=== PATIENT | female | born 1965 | race Caucasian/White ===

== ENCOUNTER 2017-07-25 23:42 | Emergency (ER) | payer OTHER ==
[~2017-07-25] VITALS: Ht 165.1 cm; Wt 81.7 kg
[~2017-07-25 23:42] MED LIST: (None)20 M1 PO; ALBIPROI INH; AMOCLA500 PO; AMOCLA875 PO; AMOX500 PO; ASPI81CH PO; ATOM60 PO; Antivert25 MG PO; BUDE32NIS; BUPR150ER; CODACE30 PO; CODGUAEL PO; DOXY100 PO; ESCI10 PO; ESCI20; ESCI20 PO; HYDACE5 PO; HYDACE5325 PO; HYDPAM25 PO; IBUP600 PO; IBUP800 PO; LEVFLO500 PO; LISHYD1012 PO; LISI20 PO; MECL25 PO; METO25ER; METO50ER PO; MIGRAINE MED; MUPI2TC TOP; Mucinex600 MG PO; NITR.4SL SL; ONDA4 PO; OTC SINUS MED; OXYACE5T PO; PENVK500 PO; PRED20 PO; PSEU120ER PO; RANI150; RXHYD5325 PO; RXOXYACE PO; SULTRIDS PO; Ventolin Soln3 ML INH
[2017-07-25] MEDS ORDERED: ATOR20 PO (23:56)
[2017-07-26 00:51] LABS: BASOPHILS ABSOLUTE AUTO 0.08 K/mm3 (0.00-0.23); BASOPHILS PERCENT AUTO 1 % (0-2); EOSINOPHILS ABSOLUTE AUTO 0.19 K/mm3 (0.00-0.68); EOSINOPHILS PERCENT AUTO 3 % (0-6); Hematocrit 47.4 % (33.0-51.0); Hemoglobin 15.1 g/dL (11.5-16.0); IMMATURE GRAN ABSOLUTE AUTO 0.01 K/mm3 (0.00-0.10); IMMATURE GRAN PERCENT AUTO 0 % (0-1); LYMPHOCYTES ABSOLUTE AUTO 3.21 K/mm3 (0.84-5.20); LYMPHOCYTES PERCENT AUTO 43 % (21-46); MONOCYTES ABSOLUTE AUTO 0.51 K/mm3 (0.16-1.47); MONOCYTES PERCENT AUTO 7 % (4-13); Mean Corpuscular HGB 27.6 pg (26.0-34.0); Mean Corpuscular HGB Conc 31.9 g/dL (31.5-36.5); Mean Corpuscular Volume 87 fL (80-100); Mean Platelet Volume 10.5 fL (9.1-12.4); NEUTROPHILS ABSOLUTE AUTO 3.41 K/mm3 (1.96-9.15); NEUTROPHILS PERCENT AUTO 46 % (41-73); Platelet Count 239 K/mm3 (150-400); RDW Coefficient Variation 11.9 % (11.7-14.2); RDW Standard Deviation 38.1 fL (35.1-46.3); Red Blood Cell Count 5.48 M/mm3 (3.80-5.20); White Blood Cell Count 7.41 K/mm3 (4.00-11.30)
[2017-07-26 00:59] LABS: Anion Gap 6 mmol/L (6-16); CO2, Blood 28 mmol/L (21-32); Chloride, Blood 105 mmol/L (98-108); Glucose, Blood 95 mg/dL (70-99); Potassium, Blood 4.1 mmol/L (3.5-5.5); Sodium, Blood 139 mmol/L (136-145)
[2017-07-26 01:00] LABS: Alanine Aminotransfer (ALT/SGP 24 U/L (12-78); Albumin, Blood 3.7 g/dL (3.4-5.0); Albumin/Globulin Ratio 0.9 (0.8-1.8); Alk Phos 99 U/L (50-136); Aspartate Aminotrans (AST/SGOT 15 U/L (12-37); Bilirubin, Total 0.2 mg/dL (0.1-1.0); Blood Urea Nitrogen 18 mg/dL (8-24); Bun/Creatinine Ratio 21.2 (12.0-20.0); Calcium, Blood 8.6 mg/dL (8.5-10.1); Creatinine, Blood 0.85 mg/dL (0.40-1.00); Globulin, Blood 4.1 g/dL (2.2-4.0); Glomerular Filtration Rate >60 (60-); Total Protein, Blood 7.8 g/dL (6.4-8.2); Troponin I <0.015 ng/mL (0.000-0.040)
== END 2017-07-26 02:17 | disposition home or self-care (01) ==
LOC: ER 23:42
PROVIDERS: Emergency Medicine
DX: R07.9 Chest pain, unspecified (principal); F41.9 Anxiety disorder, unspecified; I10 Essential (primary) hypertension; F31.9 Bipolar disorder, unspecified; J45.909 Unspecified asthma, uncomplicated; F17.200 Nicotine dependence, unspecified, uncomplicated; Z90.712 Acquired absence of cervix with remaining uterus; Z88.8 Allergy status to other drugs, medicaments and biological substances; Z88.5 Allergy status to narcotic agent; Z88.1 Allergy status to other antibiotic agents; Z79.899 Other long term (current) drug therapy; Z79.82 Long term (current) use of aspirin
CPT/HCPCS: 36415; 71046; 80053; 83880; 84484; 85025; 93005; 93010; 99284

== ENCOUNTER → 2019-01-30 | Outpatient (CLI) | payer OTHER ==
[~2019-01-30] MED LIST changes: +ATOR20 PO; +Augmentin 875-1 EACH PO
[2019-01-30 14:12] LABS: BASOPHILS ABSOLUTE AUTO 0.06 K/mm3 (0.00-0.23); BASOPHILS PERCENT AUTO 1 % (0-2); EOSINOPHILS ABSOLUTE AUTO 0.19 K/mm3 (0.00-0.68); EOSINOPHILS PERCENT AUTO 2 % (0-6); Hematocrit 53.7 % (33.0-51.0); Hemoglobin 16.7 g/dL (11.5-16.0); IMMATURE GRAN ABSOLUTE AUTO 0.01 K/mm3 (0.00-0.10); IMMATURE GRAN PERCENT AUTO 0 % (0-1); LYMPHOCYTES PERCENT AUTO 26 % (21-46); MONOCYTES ABSOLUTE AUTO 0.44 K/mm3 (0.16-1.47); MONOCYTES PERCENT AUTO 5 % (4-13); Mean Corpuscular HGB 27.9 pg (26.0-34.0); Mean Corpuscular HGB Conc 31.1 g/dL (31.5-36.5); Mean Corpuscular Volume 90 fL (80-100); Mean Platelet Volume 10.8 fL (9.1-12.4); NEUTROPHILS ABSOLUTE AUTO 5.88 K/mm3 (1.96-9.15); NEUTROPHILS PERCENT AUTO 66 % (41-73); Platelet Count 317 K/mm3 (150-400); RDW Coefficient Variation 13.5 % (11.7-14.2); RDW Standard Deviation 44.9 fL (35.1-46.3); Red Blood Cell Count 5.99 M/mm3 (3.80-5.20); White Blood Cell Count 8.88 K/mm3 (4.00-11.30)
[2019-01-30 14:35] LABS: Alanine Aminotransfer (ALT/SGP 39 U/L (12-78); Albumin, Blood 3.8 g/dL (3.4-5.0); Alk Phos 104 U/L (50-136); Anion Gap 2 mmol/L (6-16); Aspartate Aminotrans (AST/SGOT 24 U/L (12-37); Bilirubin, Total 0.2 mg/dL (0.1-1.0); Blood Urea Nitrogen 19 mg/dL (8-24); Bun/Creatinine Ratio 23.6 (12.0-20.0); CO2, Blood 34 mmol/L (21-32); Calcium, Blood 8.9 mg/dL (8.5-10.1); Chloride, Blood 104 mmol/L (98-108); Creatinine, Blood 0.81 mg/dL (0.40-1.00); Globulin, Blood 3.7 g/dL (2.2-4.0); Glomerular Filtration Rate >60 (60-); Glucose, Blood 132 mg/dL (70-99); Potassium, Blood 4.6 mmol/L (3.5-5.5); Sodium, Blood 140 mmol/L (136-145); Total Protein, Blood 7.5 g/dL (6.4-8.2); Troponin I <0.015 ng/mL (0.000-0.040)
== END | disposition home or self-care (01) ==
LOC: LAB SHORT 13:20 → LAB 13:20
PROVIDERS: Family Medicine
DX: R06.00 Dyspnea, unspecified (principal); R53.83 Other fatigue
CPT/HCPCS: 80053; 84443; 84484; 85025

== ENCOUNTER 2019-03-26 19:17 | Emergency (ER) | payer OTHER ==
[~2019-03-26] VITALS: Ht 165.1 cm; Wt 92.1 kg
[~2019-03-26 19:17] MED LIST changes: -Augmentin 875-1 EACH PO
[2019-03-26 20:22] LABS: BASOPHILS ABSOLUTE AUTO 0.02 K/mm3 (0.00-0.23); BASOPHILS PERCENT AUTO 0 % (0-2); EOSINOPHILS ABSOLUTE AUTO 0.01 K/mm3 (0.00-0.68); EOSINOPHILS PERCENT AUTO 0 % (0-6); Hemoglobin 14.3 g/dL (11.5-16.0); IMMATURE GRAN ABSOLUTE AUTO 0.04 K/mm3 (0.00-0.10); IMMATURE GRAN PERCENT AUTO 1 % (0-1); LYMPHOCYTES ABSOLUTE AUTO 0.98 K/mm3 (0.84-5.20); LYMPHOCYTES PERCENT AUTO 18 % (21-46); MONOCYTES ABSOLUTE AUTO 0.17 K/mm3 (0.16-1.47); MONOCYTES PERCENT AUTO 3 % (4-13); Mean Corpuscular HGB 27.7 pg (26.0-34.0); Mean Corpuscular HGB Conc 31.8 g/dL (31.5-36.5); Mean Corpuscular Volume 87 fL (80-100); Mean Platelet Volume 10.5 fL (9.1-12.4); NEUTROPHILS ABSOLUTE AUTO 4.35 K/mm3 (1.96-9.15); NEUTROPHILS PERCENT AUTO 78 % (41-73); Platelet Count 275 K/mm3 (150-400); RDW Coefficient Variation 13.6 % (11.7-14.2); RDW Standard Deviation 43.3 fL (35.1-46.3); Red Blood Cell Count 5.17 M/mm3 (3.80-5.20); White Blood Cell Count 5.57 K/mm3 (4.00-11.30)
[2019-03-26 20:41] LABS: Alanine Aminotransfer (ALT/SGP 46 U/L (12-78); Albumin/Globulin Ratio 1.2 (0.8-1.8); Alk Phos 111 U/L (50-136); Anion Gap 2 mmol/L (6-16); Aspartate Aminotrans (AST/SGOT 31 U/L (12-37); Bilirubin, Total 0.3 mg/dL (0.1-1.0); Blood Urea Nitrogen 14 mg/dL (8-24); Bun/Creatinine Ratio 21.7 (12.0-20.0); CO2, Blood 30 mmol/L (21-32); Calcium, Blood 9.1 mg/dL (8.5-10.1); Chloride, Blood 104 mmol/L (98-108); Creatinine, Blood 0.65 mg/dL (0.40-1.00); Globulin, Blood 3.4 g/dL (2.2-4.0); Glomerular Filtration Rate >60 (60-); Glucose, Blood 131 mg/dL (70-99); Potassium, Blood 4.3 mmol/L (3.5-5.5); Sodium, Blood 136 mmol/L (136-145); Total Protein, Blood 7.4 g/dL (6.4-8.2)
[2019-04-30] MEDS ORDERED: Augmentin 875-1 EACH PO (18:36)
== END 2019-03-26 22:05 | disposition home or self-care (01) ==
LOC: ER 19:17
PROVIDERS: Physician Assistant
DX: J44.1 Chronic obstructive pulmonary disease with (acute) exacerbation (principal); I27.21 Secondary pulmonary arterial hypertension; F17.210 Nicotine dependence, cigarettes, uncomplicated; Z88.8 Allergy status to other drugs, medicaments and biological substances; Z88.1 Allergy status to other antibiotic agents; Z88.5 Allergy status to narcotic agent; Z79.899 Other long term (current) drug therapy; Z79.82 Long term (current) use of aspirin
CPT/HCPCS: 36415; 71046; 80053; 83880; 84484; 85025; 85379; 93005; 93010; 96374; 99285-25; J1940

== ENCOUNTER 2019-05-03 06:56 | Day surgery (SDC) | payer OTHER ==
[~2019-05-03] VITALS: Ht 165.1 cm; Wt 92.0 kg
[~2019-05-03 06:56] MED LIST changes: +Augmentin 875-1 EACH PO
[2019-05-03] MEDS ORDERED: OMEPRAZOLE20 MG PO (07:22)
[2019-05-03] MEDS ORDERED: NAPR500 PO (07:23)
[2019-05-03] MEDS ORDERED: FURO40 PO (07:24)
[2019-05-03] MEDS ORDERED: LOSA25 PO (07:25)
[2019-05-03] MEDS ORDERED: BUDE6HFA INH (07:25)
[2019-05-03] MEDS ORDERED: ALBU90OI INH (07:26)
--- NOTE | 2019-05-03 12:40 | NUR ---
PT VERBALIZED UNDERSTANDING OF WRITTEN AND VERBAL D/C INST. IV REMOVED. -BLEEDING OR SWELLING R GROIN.
== END 2019-05-03 13:00 | disposition home or self-care (01) ==
LOC: MHTC 06:56
DX: I27.20 Pulmonary hypertension, unspecified (principal); F15.10 Other stimulant abuse, uncomplicated; I10 Essential (primary) hypertension; E78.5 Hyperlipidemia, unspecified; J44.9 Chronic obstructive pulmonary disease, unspecified; K21.9 Gastro-esophageal reflux disease without esophagitis; F41.9 Anxiety disorder, unspecified; F17.210 Nicotine dependence, cigarettes, uncomplicated; Z79.899 Other long term (current) drug therapy; Z79.51 Long term (current) use of inhaled steroids; Z88.8 Allergy status to other drugs, medicaments and biological substances; Z88.1 Allergy status to other antibiotic agents
CPT/HCPCS: 93451; 99152; 99153; C1769; J0690; J1644; J2250; J3010; J7030

== ENCOUNTER 2019-06-27 01:58 | Emergency (ER) | payer OTHER ==
[~2019-06-27] VITALS: Ht 167.6 cm; Wt 93.0 kg
[~2019-06-27 01:58] MED LIST changes: +ALBU90OI INH; +BUDE6HFA INH; +FURO40 PO; +LOSA25 PO; +NAPR500 PO; +OMEPRAZOLE20 MG PO
[2019-06-27 02:54] LABS: BASOPHILS ABSOLUTE AUTO 0.07 K/mm3 (0.00-0.23); BASOPHILS PERCENT AUTO 1 % (0-2); EOSINOPHILS ABSOLUTE AUTO 0.14 K/mm3 (0.00-0.68); EOSINOPHILS PERCENT AUTO 2 % (0-6); Hematocrit 50.7 % (33.0-51.0); Hemoglobin 15.8 g/dL (11.5-16.0); IMMATURE GRAN ABSOLUTE AUTO 0.02 K/mm3 (0.00-0.10); IMMATURE GRAN PERCENT AUTO 0 % (0-1); LYMPHOCYTES ABSOLUTE AUTO 2.63 K/mm3 (0.84-5.20); LYMPHOCYTES PERCENT AUTO 30 % (21-46); MONOCYTES ABSOLUTE AUTO 0.58 K/mm3 (0.16-1.47); MONOCYTES PERCENT AUTO 7 % (4-13); Mean Corpuscular HGB 27.8 pg (26.0-34.0); Mean Corpuscular HGB Conc 31.2 g/dL (31.5-36.5); Mean Corpuscular Volume 89 fL (80-100); Mean Platelet Volume 11.2 fL (9.1-12.4); NEUTROPHILS ABSOLUTE AUTO 5.23 K/mm3 (1.96-9.15); NEUTROPHILS PERCENT AUTO 60 % (41-73); Platelet Count 279 K/mm3 (150-400); RDW Coefficient Variation 13.2 % (11.7-14.2); RDW Standard Deviation 43.6 fL (35.1-46.3); Red Blood Cell Count 5.68 M/mm3 (3.80-5.20); White Blood Cell Count 8.67 K/mm3 (4.00-11.30)
[2019-06-27 03:09] LABS: Alanine Aminotransfer (ALT/SGP 33 U/L (12-78); Albumin, Blood 3.7 g/dL (3.4-5.0); Albumin/Globulin Ratio 1.1 (0.8-1.8); Alk Phos 99 U/L (50-136); Anion Gap 5 mmol/L (6-16); Aspartate Aminotrans (AST/SGOT 19 U/L (12-37); Bilirubin, Total 0.2 mg/dL (0.1-1.0); Blood Urea Nitrogen 19 mg/dL (8-24); Bun/Creatinine Ratio 23.6 (12.0-20.0); CO2, Blood 29 mmol/L (21-32); Chloride, Blood 110 mmol/L (98-108); Creatinine, Blood 0.81 mg/dL (0.40-1.00); Globulin, Blood 3.3 g/dL (2.2-4.0); Glomerular Filtration Rate >60 (60-); Glucose, Blood 120 mg/dL (70-99); Potassium, Blood 4.1 mmol/L (3.5-5.5); Sodium, Blood 144 mmol/L (136-145); Troponin I <0.015 ng/mL (0.000-0.040)
[2019-06-27] MEDS ORDERED: Prednisone20 MG PO (05:08)
== END 2019-06-27 05:34 | disposition home or self-care (01) ==
LOC: ER 01:58
PROVIDERS: Emergency Medicine
DX: J44.1 Chronic obstructive pulmonary disease with (acute) exacerbation (principal); I10 Essential (primary) hypertension; I27.20 Pulmonary hypertension, unspecified; F41.9 Anxiety disorder, unspecified; F31.9 Bipolar disorder, unspecified; F17.210 Nicotine dependence, cigarettes, uncomplicated; Z99.81 Dependence on supplemental oxygen; Z79.899 Other long term (current) drug therapy
CPT/HCPCS: 71046; 80053; 83880; 84484; 85025; 93005; 93010; 94640; 99284-25; J7512

== ENCOUNTER 2019-08-11 18:25 | Inpatient (IN) | payer OTHER ==
[~2019-08-11] VITALS: Ht 165.1 cm; Wt 90.8 kg
[~2019-08-11 18:25] MED LIST changes: -ALBU90OI INH; -BUDE6HFA INH; -FURO40 PO; -NAPR500 PO; -NITR.4SL SL; -OMEPRAZOLE20 MG PO; +Prednisone20 MG PO
[2019-08-11 19:07] LABS: BASOPHILS ABSOLUTE AUTO 0.07 K/mm3 (0.00-0.23); BASOPHILS PERCENT AUTO 1 % (0-2); EOSINOPHILS PERCENT AUTO 1 % (0-6); Hematocrit 48.1 % (33.0-51.0); Hemoglobin 15.4 g/dL (11.5-16.0); IMMATURE GRAN ABSOLUTE AUTO 0.02 K/mm3 (0.00-0.10); IMMATURE GRAN PERCENT AUTO 0 % (0-1); LYMPHOCYTES ABSOLUTE AUTO 1.99 K/mm3 (0.84-5.20); LYMPHOCYTES PERCENT AUTO 27 % (21-46); MONOCYTES ABSOLUTE AUTO 0.57 K/mm3 (0.16-1.47); MONOCYTES PERCENT AUTO 8 % (4-13); Mean Corpuscular HGB 28.4 pg (26.0-34.0); Mean Corpuscular Volume 89 fL (80-100); NEUTROPHILS PERCENT AUTO 62 % (41-73); Platelet Count 216 K/mm3 (150-400); RDW Coefficient Variation 13.2 % (11.7-14.2); RDW Standard Deviation 42.3 fL (35.1-46.3); Red Blood Cell Count 5.43 M/mm3 (3.80-5.20); White Blood Cell Count 7.25 K/mm3 (4.00-11.30)
[2019-08-11 19:26] LABS: Alanine Aminotransfer (ALT/SGP 20 U/L (12-78); Albumin, Blood 3.6 g/dL (3.4-5.0); Alk Phos 89 U/L (50-136); Anion Gap 2 mmol/L (6-16); Aspartate Aminotrans (AST/SGOT 13 U/L (12-37); Bilirubin, Total 0.3 mg/dL (0.1-1.0); Blood Urea Nitrogen 16 mg/dL (8-24); Bun/Creatinine Ratio 25.3 (12.0-20.0); CO2, Blood 33 mmol/L (21-32); Calcium, Blood 9.2 mg/dL (8.5-10.1); Chloride, Blood 104 mmol/L (98-108); Creatinine, Blood 0.63 mg/dL (0.40-1.00); Globulin, Blood 3.5 g/dL (2.2-4.0); Glomerular Filtration Rate >60 (60-); Glucose, Blood 92 mg/dL (70-99); Sodium, Blood 139 mmol/L (136-145); Total Protein, Blood 7.1 g/dL (6.4-8.2); Troponin I <0.015 ng/mL (0.000-0.040)
[2019-08-11 20:23] LABS: PCO2 Arterial 54.5 mmHg (35-45); PO2 Arterial 79.2 mmHg (80-100)
[2019-08-11] MEDS ORDERED: NITR.4SL SL (20:29)
[2019-08-11] MEDS ORDERED: OMEPRAZOLE20 MG PO (20:29)
[2019-08-11] MEDS ORDERED: BUDE6HFA INH (20:30)
[2019-08-11] MEDS ORDERED: INCRUSE ELLI62.5 MCG INH (20:30)
[2019-08-11] MEDS ORDERED: Duoneb 2.5-0.5 M3 ML NEB (20:31)
[2019-08-11] MEDS ORDERED: FURO20 PO (20:32)
[2019-08-11] MEDS ORDERED: ALBU90OI INH (20:32)
[2019-08-11] MEDS ORDERED: AMLO5 PO (20:33)
[2019-08-11] MEDS ORDERED: NAPR500 PO (20:33)
[2019-08-11] MEDS ORDERED: ABILIFY MYCITE5 M1 PO (20:34)
[2019-08-11] MEDS ORDERED: HYDHCL25 PO (20:35)
[2019-08-12 05:37] LABS: Hematocrit 48.4 % (33.0-51.0); Hemoglobin 15.7 g/dL (11.5-16.0); Mean Corpuscular HGB 28.1 pg (26.0-34.0); Mean Corpuscular HGB Conc 32.4 g/dL (31.5-36.5); Mean Corpuscular Volume 87 fL (80-100); Mean Platelet Volume 10.8 fL (9.1-12.4); Platelet Count 238 K/mm3 (150-400); RDW Coefficient Variation 12.9 % (11.7-14.2); RDW Standard Deviation 41.3 fL (35.1-46.3); Red Blood Cell Count 5.58 M/mm3 (3.80-5.20); White Blood Cell Count 5.94 K/mm3 (4.00-11.30)
[2019-08-12 06:06] LABS: Alanine Aminotransfer (ALT/SGP 19 U/L (12-78); Albumin, Blood 3.7 g/dL (3.4-5.0); Alk Phos 91 U/L (50-136); Anion Gap 8 mmol/L (6-16); Aspartate Aminotrans (AST/SGOT 15 U/L (12-37); Bilirubin, Total 0.3 mg/dL (0.1-1.0); Blood Urea Nitrogen 16 mg/dL (8-24); Bun/Creatinine Ratio 24.3 (12.0-20.0); CO2, Blood 30 mmol/L (21-32); Calcium, Blood 9.1 mg/dL (8.5-10.1); Chloride, Blood 102 mmol/L (98-108); Creatinine, Blood 0.66 mg/dL (0.40-1.00); Globulin, Blood 3.8 g/dL (2.2-4.0); Glomerular Filtration Rate >60 (60-); Glucose, Blood 139 mg/dL (70-99); Potassium, Blood 4.1 mmol/L (3.5-5.5); Sodium, Blood 140 mmol/L (136-145); Total Protein, Blood 7.5 g/dL (6.4-8.2)
[2019-08-12 07:11] LABS: Adenovirus Not Detected (NOT DETECT); Bordetella pertussis Not Detected (NOT DETECT); Chlamydophila pneumoniae Not Detected (NOT DETECT); Coronavirus 229E Not Detected (NOT DETECT); Coronavirus HKU1 Not Detected (NOT DETECT); Coronavirus NL63 Not Detected (NOT DETECT); Coronavirus OC43 Not Detected (NOT DETECT); Human Metapneumovirus Not Detected (NOT DETECT); Human Rhinovirus/Enterovirus Not Detected (NOT DETECT); Influenza A Not Detected (NOT DETECT); Influenza A/2009-H1 Not Detected (NOT DETECT); Influenza A/H1 Not Detected (NOT DETECT); Influenza A/H3 Not Detected (NOT DETECT); Influenza B Not Detected (NOT DETECT); Mycoplasma pneumoniae Not Detected (NOT DETECT); Parainfluenza Virus 1 Not Detected (NOT DETECT); Parainfluenza Virus 2 Not Detected (NOT DETECT); Parainfluenza Virus 3 Not Detected (NOT DETECT); Parainfluenza Virus 4 Not Detected (NOT DETECT); Respiratory Syncytial Virus Not Detected (NOT DETECT)
--- NOTE | 2019-08-12 19:54 | NUR ---
1914 REPORT RECEIVED FROM VINAY MURPHY; RESTING COMFORTABLY IN BED.
--- NOTE | 2019-08-13 04:00 | NUR ---
SHIFT SUMMARY: 54 Y/O FEMALE RESTED COMFORTABLY ALL SHIFT WHILE WEARING O2 AT 4L/M PER NASAL CANNULA; PT HAD OCCASIONAL BOUTS ANXIETY AT TIMES, HOWEVER; RESOLVED WITH REST AND WATCHING TV OR TALKING WITH FAMILY VISITORS AT BEGINNING OF SHIFT; TELEMETRY REFLECTS NSR PER EARNESTINE TOM--INSURANCE LOSS ASSESSOR; BED LOW POSITION WITH CALL LIGHT AT SIDE.
[2019-08-13 05:25] LABS: BASOPHILS ABSOLUTE AUTO 0.01 K/mm3 (0.00-0.23); BASOPHILS PERCENT AUTO 0 % (0-2); EOSINOPHILS PERCENT AUTO 0 % (0-6); Hematocrit 46.5 % (33.0-51.0); Hemoglobin 15.1 g/dL (11.5-16.0); IMMATURE GRAN ABSOLUTE AUTO 0.03 K/mm3 (0.00-0.10); IMMATURE GRAN PERCENT AUTO 0 % (0-1); LYMPHOCYTES PERCENT AUTO 9 % (21-46); MONOCYTES ABSOLUTE AUTO 0.31 K/mm3 (0.16-1.47); MONOCYTES PERCENT AUTO 3 % (4-13); Mean Corpuscular HGB Conc 32.5 g/dL (31.5-36.5); Mean Corpuscular Volume 86 fL (80-100); Mean Platelet Volume 10.8 fL (9.1-12.4); NEUTROPHILS ABSOLUTE AUTO 8.29 K/mm3 (1.96-9.15); NEUTROPHILS PERCENT AUTO 87 % (41-73); Platelet Count 231 K/mm3 (150-400); RDW Coefficient Variation 13.2 % (11.7-14.2); RDW Standard Deviation 41.3 fL (35.1-46.3); White Blood Cell Count 9.54 K/mm3 (4.00-11.30)
[2019-08-13 05:47] LABS: Anion Gap 6 mmol/L (6-16); Blood Urea Nitrogen 24 mg/dL (8-24); Bun/Creatinine Ratio 36.8 (12.0-20.0); CO2, Blood 29 mmol/L (21-32); Calcium, Blood 8.9 mg/dL (8.5-10.1); Chloride, Blood 102 mmol/L (98-108); Creatinine, Blood 0.65 mg/dL (0.40-1.00); Glomerular Filtration Rate >60 (60-); Glucose, Blood 158 mg/dL (70-99); Magnesium, Blood 2.2 mg/dL (1.6-2.4); Sodium, Blood 137 mmol/L (136-145)
--- NOTE | 2019-08-13 19:33 | NUR ---
REPORT RECEIVED FROM COLTON RN; PT RESTING COMFORTABLY IN BED WHILE TALKING ON PHONE; WEARING O2 AT 2L/M PER NASAL CANNULA.
--- NOTE | 2019-08-14 04:17 | NUR ---
SHIFT SUMMARY: 54 Y/O OBESE FEMALE RESTED COMFORTABLY ALL SHIFT; WEARING O2 AT 2L/M PER NASAL CANNULA WITH O2 SATS 90%; LUNG SOUNDS ARE WHEEZING THROUGHOUT WITH OCCASIONAL PRODUCTIVE COUGH CLEAR PHELGM; HAPPY AND COOPERATIVE; VITAL SIGNS STABLE; UP INDEPENDENTLY IN ROOM WITH GAIT SLOW AND STEADY; EAGER TO RETURN HOME; BED LOW POSITION WITH CALL LIGHT AT SIDE.
[2019-08-14 05:17] LABS: Anion Gap 4 mmol/L (6-16); Blood Urea Nitrogen 33 mg/dL (8-24); Bun/Creatinine Ratio 45.3 (12.0-20.0); CO2, Blood 31 mmol/L (21-32); Calcium, Blood 9.1 mg/dL (8.5-10.1); Chloride, Blood 103 mmol/L (98-108); Creatinine, Blood 0.73 mg/dL (0.40-1.00); Glomerular Filtration Rate >60 (60-); Glucose, Blood 144 mg/dL (70-99); Potassium, Blood 4.3 mmol/L (3.5-5.5); Sodium, Blood 138 mmol/L (136-145)
--- NOTE | 2019-08-14 07:00 | NUR ---
ASSUMED CARE OF PT- PT ALERT AND ORIENTED AND INDEPENDENT IN THE MORAN. PT IS VERY ENERGIZED THIS MORNING AND IS ASKING IF SHE GETS TO GO HOME TODAY. PT IS ON 60 MG IV SOLUMEDROL Q6 AT THIS TIME.
--- NOTE | 2019-08-14 17:44 | NUR ---
SHIFT SUMMARY- PT ALERT AND ORIENTED WAS VERY ENERGIZED THIS MORNING, STEROID DOSE WAS REDUCED TO TWICE A DAY FROM 4 TIMES A DAY. IV LASIX WAS DC'D NEW MEDS ORDERED, SEE EMAR FOR DETAILS. PT HAD A SHOWER TODAY BETWEEN THAT AND THE NEW ORDER FOR FLONASE THE PT STATED HER NASAL CONGESTION TODAY IS IMPROVED. PT WAS DOING "LAPS" IN THE HALLWAY THIS AFTERNOON AND SATS WERE A LITTLE LOWER WHEN SHE RETURNED TO HER ROOM O2 INCREASED TO 4L NC TO AID WITH HER RECOVERY AND THEN REDUCED BACK DOWN. RT PRESENT AND TITRATED O2 THE PT NEEDED. PT POSSIBLE DC TOMORROW IF SHE CONTINUES TO IMPROVE.
--- NOTE | 2019-08-14 19:38 | NUR ---
REPORT RECEIVED FROM COLTON MCLEAN; AIDA; UP AD JALEESA WHILE WEARING O2 AT 3L/M PER NASAL CANNULA IN ROOM; VOICE CLEAR AND AUDIBLE.
--- NOTE | 2019-08-15 04:28 | NUR ---
SHIFT SUMMARY: 54 Y/O FEMALE RESTED COMFORTABLY ALL SHIFT; PT EAGER FOR POSSIBLE DISCHARGE HOME TODAY; ALERT AND ORIENTED X 4; UP INDEPENDENTLY IN ROOM WHILE WEARING O2 AT 3L/M PER NASAL CANNULA; LUNG SOUNDS ARE COARSE THROUGHOUT WITH NO DYSPNEA NOTED WITH ACTIVITY; VOICE CLEAR AND AUDIBLE; TELEMETRY NSR PER MEEK--HEEL TRIMMER; BED LOW POSITION WITH CALL LIGHT AT SIDE.
[2019-08-15 06:00] LABS: Anion Gap 4 mmol/L (6-16); Blood Urea Nitrogen 28 mg/dL (8-24); Bun/Creatinine Ratio 42.1 (12.0-20.0); CO2, Blood 31 mmol/L (21-32); Calcium, Blood 8.5 mg/dL (8.5-10.1); Chloride, Blood 103 mmol/L (98-108); Creatinine, Blood 0.67 mg/dL (0.40-1.00); Glomerular Filtration Rate >60 (60-); Glucose, Blood 130 mg/dL (70-99); Potassium, Blood 4.2 mmol/L (3.5-5.5); Sodium, Blood 138 mmol/L (136-145)
[2019-08-15 06:04] LABS: Thyroid Stimulating Hormone 0.243 uIU/mL (0.360-4.800)
[2019-08-15] MEDS ORDERED: Flonase 0.05% N16 GM (14:37)
[2019-08-15] MEDS ORDERED: PRED20 PO (14:38)
[2019-08-15] MEDS ORDERED: REVATIO20 MG PO (14:39)
[2019-08-15] MEDS ORDERED: DEEP SEA44 ML (14:40)
[2019-08-15] MEDS ORDERED: SPIR25 PO (14:41)
--- NOTE | 2019-08-15 15:28 | NUR ---
DISCHARGE NOTE- PT WAS GIVEN VERBAL AND WRITTEN DISCHARGE INSTRUCTIONS AND ACKNOWLEDGED UNDERSTANDING OF THEM. MEDS WERE FAXED TO [facility] PER PT RERQUEST [facility] WAS CLOSED TODAY. PT TELE AND IV WERE DC'D AT THE TIME OF DISCHARGE. PT HAD NO FURTHER QUESTIONS AT THE TIME OF DISCHARGE. PT ESCORTED OUT VIA WC BY THE CLAM BED LABORER.
== END 2019-08-15 14:58 | disposition home or self-care (01) | DRG 189 ==
LOC: ER 18:25 → ERHOLD 20:25 → MEDS 08-12 12:25 → ENPENDDIS 08-15 10:00 → MEDS 08-15 14:58
PROVIDERS: Emergency Medicine; Internal Medicine; Physician Assistant; ADMIT Internal Medicine
DX: J96.21 Acute and chronic respiratory failure with hypoxia (principal); J44.1 Chronic obstructive pulmonary disease with (acute) exacerbation; F17.210 Nicotine dependence, cigarettes, uncomplicated; F31.9 Bipolar disorder, unspecified; F32.9 Major depressive disorder, single episode, unspecified; I10 Essential (primary) hypertension; I25.2 Old myocardial infarction; I27.20 Pulmonary hypertension, unspecified; F41.9 Anxiety disorder, unspecified; Z99.81 Dependence on supplemental oxygen; I27.81 Cor pulmonale (chronic)
CPT/HCPCS: 0099U; 36415; 36600; 71046; 80048; 80053; 82803; 83605; 83735; 83880; 84443; 84484; 85025; 85027; 87040; 87070; 87205; 93005; 93010; 94640; 94644; 94760; 96365; 96375; 96376; 99285-25; A9270; J1100; J1650; J1940; J1956; J2920; J2930; J7512

== ENCOUNTER 2019-08-20 19:48 | Emergency (ER) | payer OTHER ==
[~2019-08-20] VITALS: Ht 165.1 cm; Wt 93.0 kg
[~2019-08-20 19:48] MED LIST changes: +ABILIFY MYCITE5 M1 PO; +ALBU90OI INH; +AMLO5 PO; +BUDE6HFA INH; +DEEP SEA44 ML; +Duoneb 2.5-0.5 M3 ML NEB; +FURO20 PO; +Flonase 0.05% N16 GM; +HYDHCL25 PO; +INCRUSE ELLI62.5 MCG INH; +NAPR500 PO; +NITR.4SL SL; +OMEPRAZOLE20 MG PO; +REVATIO20 MG PO; +SPIR25 PO
[2019-08-20 20:59] LABS: BASOPHILS ABSOLUTE AUTO 0.04 K/mm3 (0.00-0.23); BASOPHILS PERCENT AUTO 0 % (0-2); EOSINOPHILS ABSOLUTE AUTO 0.22 K/mm3 (0.00-0.68); EOSINOPHILS PERCENT AUTO 2 % (0-6); Hematocrit 48.1 % (33.0-51.0); IMMATURE GRAN ABSOLUTE AUTO 0.17 K/mm3 (0.00-0.10); IMMATURE GRAN PERCENT AUTO 1 % (0-1); LYMPHOCYTES ABSOLUTE AUTO 3.76 K/mm3 (0.84-5.20); LYMPHOCYTES PERCENT AUTO 32 % (21-46); MONOCYTES PERCENT AUTO 8 % (4-13); Mean Corpuscular HGB 28.2 pg (26.0-34.0); Mean Corpuscular HGB Conc 31.2 g/dL (31.5-36.5); Mean Platelet Volume 10.1 fL (9.1-12.4); NEUTROPHILS PERCENT AUTO 57 % (41-73); Platelet Count 265 K/mm3 (150-400); RDW Coefficient Variation 13.9 % (11.7-14.2); RDW Standard Deviation 45.9 fL (35.1-46.3); Red Blood Cell Count 5.31 M/mm3 (3.80-5.20); White Blood Cell Count 11.89 K/mm3 (4.00-11.30)
[2019-08-20 21:01] LABS: Mean Corpuscular Volume 91 fL (80-100)
[2019-08-20 21:19] LABS: Alanine Aminotransfer (ALT/SGP 33 U/L (12-78); Albumin, Blood 3.3 g/dL (3.4-5.0); Albumin/Globulin Ratio 1.1 (0.8-1.8); Alk Phos 65 U/L (50-136); Anion Gap 5 mmol/L (6-16); Aspartate Aminotrans (AST/SGOT 15 U/L (12-37); Bilirubin, Total 0.1 mg/dL (0.1-1.0); Blood Urea Nitrogen 20 mg/dL (8-24); CO2, Blood 32 mmol/L (21-32); Calcium, Blood 8.7 mg/dL (8.5-10.1); Chloride, Blood 103 mmol/L (98-108); Globulin, Blood 3.1 g/dL (2.2-4.0); Glomerular Filtration Rate >60 (60-); Glucose, Blood 106 mg/dL (70-99); Potassium, Blood 4.6 mmol/L (3.5-5.5); Sodium, Blood 140 mmol/L (136-145); Total Protein, Blood 6.4 g/dL (6.4-8.2); Troponin I <0.015 ng/mL (0.000-0.040)
[2019-08-20] MEDS ORDERED: Prednisone20 MG PO (22:47)
== END 2019-08-20 23:30 | disposition home or self-care (01) ==
LOC: ER 19:48
PROVIDERS: Physician Assistant
DX: J44.1 Chronic obstructive pulmonary disease with (acute) exacerbation (principal); I27.20 Pulmonary hypertension, unspecified; F41.9 Anxiety disorder, unspecified; F31.9 Bipolar disorder, unspecified; F17.210 Nicotine dependence, cigarettes, uncomplicated; Z88.8 Allergy status to other drugs, medicaments and biological substances; Z88.1 Allergy status to other antibiotic agents; Z79.899 Other long term (current) drug therapy; Z79.51 Long term (current) use of inhaled steroids
CPT/HCPCS: 36415; 71046; 80053; 83880; 84484; 85025; 93005; 93010; 94640; 99284-25; J7512

== ENCOUNTER 2019-08-26 03:19 | Inpatient (IN) | payer OTHER ==
--- NOTE | 2019-08-25 20:00 | NUR ---
ASSUMPTION OF CARE: PT IN BED ASLEEP ON CPAP. PT HAS SIGNIFICANT ANXIETY HISTORY. SHE AHS ATIVAN AND ATARAX ORDERED FOR THAT. IN ST, SBP IN THE 130S. LUNG SOUNDS ARE TIGHT AND WHEEZY. CPAP IS ON WITH 4L BLEED IN. SPO2 >90%. SEEMS TO TOLERATE WELL. PT IS NPO. 20G IN L HAND IS PATENT AND SL. PT VOIDING ON OWN AND IS ABLE TO AMBULATE WITH ASSISTANCE. HOWEVER DAYSHIFT RN REPORTS PT BECOMES DYSPNEIC QUICKLY AND DESATS. WILL USE BED SELLERS IF NECESSSARY. WILL CONTINUE TO MONITOR.
[~2019-08-26] VITALS: Ht 165.1 cm; Wt 94.1 kg
[2019-08-26 03:52] LABS: BASOPHILS ABSOLUTE AUTO 0.04 K/mm3 (0.00-0.23); BASOPHILS PERCENT AUTO 0 % (0-2); EOSINOPHILS ABSOLUTE AUTO 0.11 K/mm3 (0.00-0.68); EOSINOPHILS PERCENT AUTO 1 % (0-6); Hemoglobin 15.2 g/dL (11.5-16.0); IMMATURE GRAN ABSOLUTE AUTO 0.18 K/mm3 (0.00-0.10); IMMATURE GRAN PERCENT AUTO 1 % (0-1); LYMPHOCYTES ABSOLUTE AUTO 2.08 K/mm3 (0.84-5.20); LYMPHOCYTES PERCENT AUTO 11 % (21-46); MONOCYTES ABSOLUTE AUTO 1.06 K/mm3 (0.16-1.47); MONOCYTES PERCENT AUTO 5 % (4-13); Mean Corpuscular HGB 28.3 pg (26.0-34.0); Mean Corpuscular Volume 91 fL (80-100); NEUTROPHILS ABSOLUTE AUTO 16.09 K/mm3 (1.96-9.15); NEUTROPHILS PERCENT AUTO 82 % (41-73); RDW Coefficient Variation 14.5 % (11.7-14.2); RDW Standard Deviation 48.5 fL (35.1-46.3); Red Blood Cell Count 5.38 M/mm3 (3.80-5.20); White Blood Cell Count 19.56 K/mm3 (4.00-11.30)
[2019-08-26 03:54] LABS: Mean Platelet Volume 10.5 fL (9.1-12.4); Platelet Count 203 K/mm3 (150-400)
[2019-08-26 03:58] LABS: PCO2 Arterial 64.8 mmHg (35-45); PO2 Arterial 123 mmHg (80-100); pH Blood Arterial 7.34 (7.35-7.45)
[2019-08-26 04:12] LABS: Alanine Aminotransfer (ALT/SGP 31 U/L (12-78); Albumin, Blood 3.7 g/dL (3.4-5.0); Alk Phos 72 U/L (50-136); Anion Gap 4 mmol/L (6-16); Aspartate Aminotrans (AST/SGOT 17 U/L (12-37); Bilirubin, Total 0.3 mg/dL (0.1-1.0); Blood Urea Nitrogen 17 mg/dL (8-24); Bun/Creatinine Ratio 22.5 (12.0-20.0); CO2, Blood 33 mmol/L (21-32); Calcium, Blood 8.8 mg/dL (8.5-10.1); Chloride, Blood 102 mmol/L (98-108); Creatinine, Blood 0.76 mg/dL (0.40-1.00); Globulin, Blood 3.6 g/dL (2.2-4.0); Glomerular Filtration Rate >60 (60-); Glucose, Blood 141 mg/dL (70-99); Sodium, Blood 139 mmol/L (136-145); Total Protein, Blood 7.3 g/dL (6.4-8.2); Troponin I <0.015 ng/mL (0.000-0.040)
--- NOTE | 2019-08-26 06:36 | NUR ---
RECEIVED PT FROM ED VIA STRETCHER. PT STATED SHE WAS HAVING TROUBLE BREATHING, BUT O2 SAT WAS 97% ON 3L VIA NC. PT ORIENTED TO ROOM, CALL LIGHT CLOSE TO HAND, INFORMED OF PLAN OF CARE, ADMISSION COMPLETED. PT NOW DOZING, EASY TO AROUSE TO VOICE. O2 TURNED DOWN TO 2L VIA NC, SAT IS 100%.
--- NOTE | 2019-08-26 08:30 | NUR ---
ASSUMED CARE: REPORT RECEIVED FROM NOELLE Cifuentes, RN & TG Meeks RN. ASSUMED CARE OF THIS PT AT APPROX 0700. ON ASSESSMENT, THE PT IS RESTING QUIETLY. SHE AWAKENS EASILY TO VERBAL STIMULUS & THEN QUICKLY RESUMES SLEEPING. LS ARE WHEEZY T/O, PT ON 2L NC WHICH IS BASELINE O2, SATS > 92%. MONITOR SHOWS ST W/ HR 110s, BP STABLE. HTN INCREASING THIS AM, WILL ADDRESS W/ PROVIDER. NO GI/ COMPLAINTS. SKIN OVERALL CDI. WILL CONTINUE TO MONITOR & UPDATE NEEDED.
--- NOTE | 2019-08-26 10:37 | NUR ---
UPDATE / CALL TO PROVIDER: PT CALLS OUT TO THIS RN THAT SHE HAD TO PEE BUT COULD NOT GET OOB QUICKLY ENOUGH. PT UP TO CHAIR W/ MIN ASSIST FOR LINEN & GOWN CHANGE. PT BECOMES INCREASINGLY ANXIOUS WHILE OOB. JORGE A Pringle RT, AT BEDSIDE DURING THIS TIME PT IS BECOMING MORE WHEEZY T/O LUNG MCDONALD & RESPIRATIONS ARE NOW MORE LABORED. HE CALLS PROVIDER TO REQUEST CPAP & THIS RN REQUESTS FURTHER MEDS FOR ANXIETY WELL. DR ARMENDARIZ STS TO USE ATARAX PER EMAR FIRST BUT THAT ATIVAN IS ACCEPTABLE IF ATARAX DOES NOT WORK, ORDERS PLACED. PT PLACED ON CPAP W/ PRESSURE OF 8 & O2 BLEED-IN OF 3L/MIN. SHE IS TOLERATING THIS WELL & IS NOW MORE RELAXED. RESPIRATIONS HAVE SLOWED & ARE LESS LABORED. WILL CONTINUE TO MONITOR & UPDATE NEEDED.
--- NOTE | 2019-08-26 15:21 | NUR ---
PT WITH URGENCY TO VOID, PLACED ON BEDPAN. CPAP REMOVED, O2 PLACED. PT QUICKLY DESATURATED TO 80%, LABORED RESP W ACCESS MUSCLE USE. BIPAP REPLACED, RT CALLED, NEB STARTED VIA CPAP. PECK CHANGED, PERCI CARE COMPLETED. PT GIVEN SIDENAFIL W SMALL SIP OF WATER. HEART RATE 140+, RESP 40'S, HTN; ATIVAN 0.5MG IVP GIVEN. PT APPEARS MORE RELAXED NOW. SATS 95%, HEART RATE 116, RESP 26-30, HTN IMPROVED.
--- NOTE | 2019-08-26 17:41 | NUR ---
SHIFT SUMMARY: NO ACUTE CHANGES SINCE PRIOR UPDATES. PT REMAINS A&O, COOPERATIVE W/ CARE BUT VERY ANXIOUS AT TIMES & NOT RESPONDING WELL TO VERBAL CONSOLATION. MEDS PER EMAR FOR ANXIETY. PT HAS LISTED ADR TO CLONAZEPAM BUT STS OKAY TO TAKE LORAZEPAM, ATARAX PER EMAR ALSO ADEQUATE IN PROVIDING RELIEF OF ANXIETY. LS REMAIN VERY TIGHT & WHEEZY T/O, PT ON CPAP 8 W/ 4L O2 BLEED-IN CURRENTLY & TOLERATING WELL W/ O2 SATS > 92%. MONITOR SHOWS SR-ST, HR 90-130s. BP LABILE, BOTH HR & BP INCREASED W/ INCREASED ANXIETY. PT VOIDS W/O DIFFICULTY, HAS NO GI COMPLAINTS. SKIN OVERALL CDI & PT MOVES SELF IN BED W/O DIFFICULTY. WILL CONTINUE TO MONITOR & REPORT OFF TO ONCOMING RN.
[2019-08-26 18:48] LABS: Adenovirus Not Detected (NOT DETECT); Bordetella pertussis Not Detected (NOT DETECT); Chlamydophila pneumoniae Not Detected (NOT DETECT); Coronavirus 229E Not Detected (NOT DETECT); Coronavirus HKU1 Not Detected (NOT DETECT); Coronavirus NL63 Not Detected (NOT DETECT); Coronavirus OC43 Detected (NOT DETECT); Human Metapneumovirus Not Detected (NOT DETECT); Human Rhinovirus/Enterovirus Not Detected (NOT DETECT); Influenza A Not Detected (NOT DETECT); Influenza A/2009-H1 Not Detected (NOT DETECT); Influenza A/H1 Not Detected (NOT DETECT); Influenza A/H3 Not Detected (NOT DETECT); Influenza B Not Detected (NOT DETECT); Mycoplasma pneumoniae Not Detected (NOT DETECT); Parainfluenza Virus 1 Not Detected (NOT DETECT); Parainfluenza Virus 2 Not Detected (NOT DETECT); Parainfluenza Virus 3 Not Detected (NOT DETECT); Parainfluenza Virus 4 Not Detected (NOT DETECT); Respiratory Syncytial Virus Not Detected (NOT DETECT)
--- NOTE | 2019-08-26 20:00 | NUR ---
ASSUMPTION OF CARE: PT IN BED ASLEEP ON CPAP. PT HAS SIGNIFICANT ANXIETY HISTORY. SHE AHS ATIVAN AND ATARAX ORDERED FOR THAT. IN ST, SBP IN THE 130S. LUNG SOUNDS ARE TIGHT AN WHEEZY. CPAP IS ON WITH 4L BLEED IN. SPO2 >90%. SEEMS TO TOLERATE WELL. PT IS NPO. 20G IN L HAND IS PATENT AND SL. PT VOIDING ON OWN AND IS ABLE TO AMBULAT WITH ASSISTANCE. HOWEVER DAYSHIFT RN REPORTS PT BECOMES DYSPNEIC QUICKLY AND DESATS. WILL USE BED SELLERS IF NECESSSARY. WILL CONTINUE TO MONITOR.
--- NOTE | 2019-08-26 20:45 | NUR ---
PT FAIRLY DROWSY. ABLE TO BRIEFLY ROUSE WITH VERBAL STIMULI. PUPILS PINPOINT. HOLDING SILDENAFIL UNTIL PT IS MORE AWAKE.
[2019-08-27 04:11] LABS: Hematocrit 49.1 % (33.0-51.0); Mean Corpuscular HGB 27.8 pg (26.0-34.0); Mean Corpuscular HGB Conc 30.5 g/dL (31.5-36.5); Mean Corpuscular Volume 91 fL (80-100); Mean Platelet Volume 9.8 fL (9.1-12.4); Platelet Count 251 K/mm3 (150-400); RDW Coefficient Variation 14.7 % (11.7-14.2); RDW Standard Deviation 49.5 fL (35.1-46.3); White Blood Cell Count 10.82 K/mm3 (4.00-11.30)
[2019-08-27 04:28] LABS: Alanine Aminotransfer (ALT/SGP 27 U/L (12-78); Albumin, Blood 3.5 g/dL (3.4-5.0); Albumin/Globulin Ratio 0.9 (0.8-1.8); Alk Phos 71 U/L (50-136); Anion Gap 5 mmol/L (6-16); Aspartate Aminotrans (AST/SGOT 10 U/L (12-37); Bilirubin, Total 0.4 mg/dL (0.1-1.0); Blood Urea Nitrogen 17 mg/dL (8-24); Bun/Creatinine Ratio 26.9 (12.0-20.0); CO2, Blood 36 mmol/L (21-32); Calcium, Blood 9.1 mg/dL (8.5-10.1); Chloride, Blood 101 mmol/L (98-108); Creatinine, Blood 0.63 mg/dL (0.40-1.00); Globulin, Blood 3.8 g/dL (2.2-4.0); Glomerular Filtration Rate >60 (60-); Glucose, Blood 145 mg/dL (70-99); Potassium, Blood 4.5 mmol/L (3.5-5.5); Sodium, Blood 142 mmol/L (136-145); Total Protein, Blood 7.3 g/dL (6.4-8.2)
--- NOTE | 2019-08-27 06:22 | NUR ---
SUMMARY: PT SLEPT MAJORITY OF SHIFT. HOWEVER WHEN PT AWOKE TO USE BEDPAN SHE HAD A SIG INCREASE IN ANXIETY. REDIRECTION AND DISTRACTION WAS USED TO CALM PT. ULTIMATELY SHE REQUIRED MEDICATION PER SEP. PT ST FROM 100S-120S. SBP AND RR STABLE BUT DO INCREASE DURING EPISODES OF INCREASED ANXIETY. TOLERATED CPAP WELL THROUGHOUT NIGHT. LUNG SOUNDS WHEEZY. SPO2 REMAINED >90% MAJORITY OF SHIFT ON 4L BLEED IN. 20G IN L HAND/WRIST PATENT AND SL. WILL PASS REPORT TO NEXT SHIFT
--- NOTE | 2019-08-27 08:01 | NUR ---
ASSUMED CARE RECIEVED REPORT FROM VINAY BLANCHARD. PT IS IN BED WITH THE CPAP ON PRESSURE OF 8, WITH A 4L OXYGEN BLEED IN. SHE HAS STABLE VITALS TILL SHE GETS ANXIOUS/PANICS, THEN HER HR, BP, AND RR SHOOT UP. SHE IS SOMEWHAT REDIRECTABLE. COMPLAINS ABOUT BEING HUNGRY AND NEEDING FOOD, ALTHOUGH CURRENTLY NPO. WILL START A NC TRIAL AND SEE HOW SHE DOES. BED IS LOW AND LOCKED. CALL LIGHT WITHIN REACH.
--- NOTE | 2019-08-27 11:54 | NUR ---
Spiritual care visit conducted. Patient is sitting up in bed and alert. Patient immediately shares with me that she does not want to go on living in the condition she is in if there is no hope for a better quality of life. Patient tells me that she continues to smoke and she knows it is exacerbating the problem but she knows she can't quit if this is her new baseline and there is no hope of improvement. We talk about her personal struggles, her family unit complications and the small goals that she has in life. I listen empathically, explore sources of meaning, reinforce helpful attitudes, highlight the qualities she does have and provide pastoral senior counsel commercial and prayer. Patient responds well and shows signs of improved hope. I will continue to remain available to patient and family.
--- NOTE | 2019-08-27 18:47 | NUR ---
Initial palliative care consult: Brit is a 54 year old with a history of COPD, pulmonary HTN, asthma, HTN, depression, anxiety, and bipolar. She is sitting up in the bedside chair and is anxious. She tells this public relations writer she is here in ICU because of a medication reaction she had to a new medication. She is unsure of the name of the medication. She lives with friends at home and still continues to drive. She reports that her friends have had to help her out at home. She states aobut a year ago she started having symptoms of difficulty breathing and she states that since last March the breathing has gotten worse. She reports a poor quality of life and is tearful when she talks about her heart and lung disease. She states "I don't want to . I want to live, I just can't continue to live like this!" She reports that she has seen a cotton stomper in [place] for the past three months. She wants to quit smoking. She states she has smoked since age 11. Smoking cessation material was given to her by the materials planner. She is interested in getting some additional help at home. She states she would like her friends to be paid caregivers for her if this is possible. She reports she has a oil field caser at [facility], however she doesn't know their name. She receives food stamps and is on disability for what she states are "mental problems." She has an appointment with [facility] machine clipper next week. Encouraged her to speak with her machine clipper about getting extra help at home. Brit also asked about getting reimbursed for medical miles that she drives to [place] form doctors appointments. for weekend PRERNA Loja to follow up with Brit re: mileage reimbursement question. She confirms her DNR status at this time. She states she would like to work on a will to make sure that her son gets some of her things if she were to . She gets very anxious at times during the conversation. She is able to be redirected with verbal coaching for pursed lip breathing. During the conversation her cell phone rang and she stated "This is my lung doctor in [place]." Dr. Tapia, her cotton stomper at [facility], returned her call from earlier. He spoke with Brit's nurse, Yudelka. While Yudelka was speaking with the cotton stomper in [place] Brit stated she needed to go to [place] because she wasn't getting any better here. Emotional support given and allowed her to vent her feelings and frustrations. Her dinner arrived and she wanted to eat. Stepped outside her room and spoke with nursing. Dr. Pantoja spoke with her cotton stomper in [place] and determined that a transfer to [place] was not necessary at this time. Explained to Brit that the two pulmonologists spoke and that the plan was to continue with treatments here. She stated that she understood and that she felt better knowing that her doctor in [place] was updated on how she was doing. PC will continue to follow for advanced care planning and symptom management.
--- NOTE | 2019-08-27 19:15 | NUR ---
SHIFT SUMMARY TODAY THE PATIENT HAD AN O.K. DAY. SHE SPENT THE MAJORITY OF THE DAY ON 2-4L NC, AND OFF THE CPAP - SOMETIMES USING IT PRN FOR SHORT PERIODS OF TIME TO RECOVER. SHE IS VERY DYSPNEIC WITH EXERTION. AND SHE HAS HIGH ANXIETY, AND PANICS WHICH MAKES EVERYTHING WORSE. WHEN CALM/RESTING SHE HAS FAIRLY NORMAL VITALS, EXCEPT SHE WOULD BE TACHYCARDIC. SHE WOULD MAINTAIN SATS AROUND 92%, GOAL IS ABOVE 88%. THIS WAS VERY INFREQUENT, SHE HAS BEEN ANXIOUS, DYSPNEIC AND PANICKING FOR THE MAJORITY OF THE DAY. PULMONOLOGY WAS CONSULTED AND SHE WAS PLACED ON A PRECEDEX GTTP AND MADE ICU STATUS. PRECEDEX IS AT 0.5MCG/KG/HR AND IS HELPING. HR AND RR HAVE IMPROVED GREATLY. SHE HAD A BM TODAY AND MADE LOTS OF URINE. SHE DENIES ANY PAIN, ASIDE FROM THE GENERAL DISCOMFORT OF HER DYSPNEA. SHE GOT A DIET TODAY AFTER PROVING SHE WAS FINE ON THE NC, AND HAS HAD A GREAT APPETITE. SHE TALKED WITH PALLIATIVE CARE AND DR AUGAYO EXTENSIVELY ABOUT HER CODE STATUS. SHE WANTS FULL TREATMENT ASIDE FROM CPR/INTUBATION/SHOCKING - SHE WISHES TO BE A DNR/DNI. BED IS LOW AND LOCKED. SHE WAS ABLE TO GET TO CHAIR AND HAS BEEN IN THE CHAIR FOR A FEW HOURS NOW. CALL LIGHT WITHIN REACH.
--- NOTE | 2019-08-27 20:00 | NUR ---
ASSUMED CARE OF PT AT 1915. REPORT RECEIVED AT BEDSIDE. PT PRESENTS IN BEDSIDE RECLINER. FAMILY IN ROOM. PT SOMEWHAT ANXIOUS, AND TACHYPNEIC. DID HAVE PT SLOW BREATHING WHICH WAS AFFECTIVE. PT ON NASAL CANNULA AND MAINTAINING SATURATIONS AT OR JUST ABOVE 90 PERCENT. WILL REVIEW CHART AND PLAN OF CARE FOR THIS PT.
--- NOTE | 2019-08-27 23:00 | NUR ---
PT HAS OPTED TO SLEEP IN BEDSIDE RECLINER THIS NIGHT. HAS RELUCTANTLY ACCEPTED CPAP MASK FROM [facility]. PT'S ANXIOUSNESS HAS BEEN SOMEWHAT IMPROVING. WILL CONTINUE TO MONITOR.
--- NOTE | 2019-08-28 02:00 | NUR ---
PT CONTINUES TO WEAR HER CPAP MASK. SATURATIONS REMAIN > 90 PERCENT. PT HAS NO COMPLAINTS AT THIS TIME. WILL CONTINUE TO MONITOR.
--- NOTE | 2019-08-28 05:32 | NUR ---
PT HAS AWAKENED AND REMOVED HER CPAP. DOES PLACE HER O2 PER NASAL CANNULA. PT HAS EPISODE WHEREAS SHE BECOMES VERY ANXIOUS. DOES RECEIVE DOSE OF ATIVAN AT HER REQUEST. PT ALSO REQUESTS TO HAVE RN JUNIOR MANUFACTURING ENGINEER HER TO BECOME CALM. BREATHING TECHNIQUE WITH PURSE LIPPED BREATHING DONE WITH PT. THIS IS AFFECTIVE. PT REMAINS UP IN RECLINER CHAIR THROUGHOUT THE NIGHT. WILL CONTINUE TO MONITOR PT, AND WILL REPORT OFF TO ONCOMING RN.
--- NOTE | 2019-08-28 08:56 | NUR ---
ASSUMED CARE RECEIVED REPORT FROM VINAY CERVANTES. PT IS VERY ANXIOUS AND DURING THIS TIME SHE BECOMES TACHYPNEIC, TACHYCARDIC, AND HYPERTENSIVE. SHE GETS WORKED UP WITH FEELINGS OF DYING, NOT GETTING BETTER AND BEING ALONE. SHE TAKES A WHILE TO RECOVER, SHE IS DIFFICULT TO CONSOLE, AND REDIRECT - BUT EVENTUALLY CAN BE. SHE IS DEPENDENT ON ANTIANXIETY MEDS. SHE IS ON 4L NC, SAT'ING 92%, HR IN THE 90'S, AND RR IN THE 20-31 RANGE. SHE IS ON PRECEDEX AT 0.7MCG/KG/HR.
--- NOTE | 2019-08-28 19:20 | NUR ---
SHIFT SUMMARY PT HAD A PERIOD OF TIME DOING REALLY WELL, RESTING WITH THE CPAP WITH 8 CM H2O WITH 4L O2 BLEED IN. OTHER THAN THAT SHE IS ON 4L NC AND HAS BEEN STRUGGLING TO BREATHE, ESPECIALLY DURING TIMES OF HIGH ANXIETY. WHEN SHE TALKS, EATS, OR MOVES SHE GETS VERY ANXIOUS AND SOB. NEW MEDS HAVE BEEN TRIED TODAY, AND PRECEDEX HAS BEEN TURNED UP TO 1.4 MCG/KG/HOUR, VERIFIED WITH NOC NURSE. PT REMAINS ALERT AND ORIENTED, ALTHOUGH, HAS MAJOR STRESS INCONTINENCE AND REQUIRED NUMEROUS ATTENDS CHANGES. SHE IS UNABLE TO LET US KNOW BEFORE URINATING AND OFTEN DOESN'T KNOW SHE IS WET. I DID PUT IN A YBARRA CATHETER. SHE GOT A DOSE OF LASIX RIGHT AFTER. BED LOW AND LOCKED.
--- NOTE | 2019-08-28 19:47 | NUR ---
review of symptoms with nursing due to air hunger and anexiety
--- NOTE | 2019-08-28 20:03 | NUR ---
ASSUMED CARE OF PT AT 1915. REPORT WAS RECEIVED AT BEDSIDE. PT PRESENTED IN BEDSIDE CHAIR. HER UNCLE - JIMMY WAS IN ROOM VISITING. WAS CALLED BACK TO ROOM TO FIND PT SITTING ON THE FLOOR IN FRONT OF HER RECLINER CHAIR. PER UNCLE WELL PATIENT, PT WAS SITTING FORWARD IN RECLINER CHAIR WHEN SHE LOWERED FOOT REST CAUSING HER TO SLIDE FORWARD AND DOWN TO FLOOR. ASSESSMENT DONE WHICH REVEALED NO INJURIES. PT WAS STOOD UP WITH TWO PERSON ASSIST. WHILE STANDING SECONDARY ASSESSMENT DONE WELL WITH NO FINDINGS OF INJURIES. PT HAS ALSO DENIED ANY INJURY WELL. SPOKE WITH ON PHONE. NO ORDERS RECEIVED. INFORMED DRAINAGE DESIGN COORDINATORDORYS AND CURRICULUM ADVISORY TEACHER OF NON INJURY OCCURRANCE. PT CURRENTLY BACK IN CHAIR IN NO DISTRESS. WILL REVIEW CHART AND PLAN OF CARE FOR THIS PT.
--- NOTE | 2019-08-28 23:00 | NUR ---
PT HAS REMAINED IN RECLINER CHAIR AND HAS STATED SHE WOULD LIKE TO SLEEP IN CHAIR SHE HAD THE PREVIOUS NIGHT. PT HAS HAD LATE VISITORS, AND HAS NOW PLACED HER CPAP BACK ON. DOES ON OCCASSION REMOVE HER CPAP AND PLACE HER NASAL CANNULA
[2019-08-29 04:36] LABS: BASOPHILS ABSOLUTE AUTO 0.01 K/mm3 (0.00-0.23); BASOPHILS PERCENT AUTO 0 % (0-2); EOSINOPHILS PERCENT AUTO 0 % (0-6); Hematocrit 46.3 % (33.0-51.0); Hemoglobin 14.3 g/dL (11.5-16.0); IMMATURE GRAN ABSOLUTE AUTO 0.06 K/mm3 (0.00-0.10); IMMATURE GRAN PERCENT AUTO 1 % (0-1); LYMPHOCYTES ABSOLUTE AUTO 0.34 K/mm3 (0.84-5.20); LYMPHOCYTES PERCENT AUTO 4 % (21-46); MONOCYTES ABSOLUTE AUTO 0.34 K/mm3 (0.16-1.47); MONOCYTES PERCENT AUTO 4 % (4-13); Mean Corpuscular HGB Conc 30.9 g/dL (31.5-36.5); Mean Corpuscular Volume 91 fL (80-100); Mean Platelet Volume 10.2 fL (9.1-12.4); NEUTROPHILS ABSOLUTE AUTO 7.84 K/mm3 (1.96-9.15); NEUTROPHILS PERCENT AUTO 91 % (41-73); Platelet Count 192 K/mm3 (150-400); RDW Coefficient Variation 13.7 % (11.7-14.2); RDW Standard Deviation 46.5 fL (35.1-46.3); Red Blood Cell Count 5.11 M/mm3 (3.80-5.20); White Blood Cell Count 8.59 K/mm3 (4.00-11.30)
[2019-08-29 04:50] LABS: Anion Gap 4 mmol/L (6-16); Blood Urea Nitrogen 26 mg/dL (8-24); CO2, Blood 36 mmol/L (21-32); Calcium, Blood 8.7 mg/dL (8.5-10.1); Chloride, Blood 96 mmol/L (98-108); Creatinine, Blood 0.74 mg/dL (0.40-1.00); Glomerular Filtration Rate >60 (60-); Glucose, Blood 215 mg/dL (70-99); Potassium, Blood 4.5 mmol/L (3.5-5.5); Sodium, Blood 136 mmol/L (136-145)
--- NOTE | 2019-08-29 05:08 | NUR ---
HAVE DECREASED PRECEDEX DRIP TO 0.5 MCG'S THROUGHOUT THE NIGHT WHILE PT WAS SLEEPING. PT WAS AWAKENED BY LAB FOR AM DRAW. PT BECOMES VERY ANXIOUS WHEN LAB LEAVES AND BEGINS TO CALL FREQUENTLY FOR SMALL TASKS. PT WAS NOT ABLE TO BE CALMES WITH THERAPEUTIC TALK. PT STATED SHE WANTED TO HAVE HER CHAIR CHECKED MORENA IF SHE WAS "STICKING TO THE CHAIR". ASKED IF PT WANTED TO GO BACK TO BED AT THIS TIME, PT STATES SHE HATES THE BED AND SHE REFUSES TO GO BACK TO BED. DISCUSSED WITH PT THAT TO FIX THE PADDING ON HER CHAIR SHE WOULD NEED TO STAND. DID BRING STANDING SCALE FOR PT SO SHE COULD STAND. HOLD ONTO RAILING, AND GET HER WEIGHT WHILE HER PADDING WAS BEING FIXED. PT BECOMES VERY ANXIOUS AND STATES, "I REFUSE, I REFUSE, I REFUSE!" SCALES REMOVED FROM ROOM, AND RETURNED TO PCU. WHEN COMING BACK TO ROOM, PT WAS VERY ANGRY WITH THIS RN, AND STATED SHE BELIEVED IT TO BE RUDE I TOOK THE SCALES OUT OF ROOM, AND SHE FELT EMBARRASSED. PT CONTINUED TO ESCALATE. PT WOULD NOT REDIRECT, AND BECAME INCREASINGLY ANXIOUS. ADMINISTERED 1 MG ATIVAN, AND RETURNED PRECEDEX TO 1.4 MCG'S BEFORE. AFTER 20 TO 30 MINUTES, PT CALLS RN BACK TO ROOM AND SHARED THAT SHE WAS SORRY FOR BEING SO ANGRY, AND THAT HER ANXIETY WAS MUCH IMPROVED. WILL CONTINUE TO MONITOR PT, AND WILL REPORT OFF TO ONCOMING RN.
--- NOTE | 2019-08-29 07:18 | NUR ---
ASSUMED CARE: REPORT RECEIVED FROM HELEN Cash RN. ASSUMED CARE OF THIS PT AT APPROX 0700. ON ASSESSMENT, THE PT IS RESTING QUIETLY & RECLINED IN CHAIR. PRECEDEX DRIP TITRATED IN FLOWSHEET. LS ARE DIM & WHEEZY T/O, PT CURRENTLY ON 4L NC W/ O2 SATS > 90%. OTHERWISE HAS BEEN TOLERATING CPAP W/ AUTO PRESSURE TITRATION & 4L O2 BLEED-IN. MONITOR SHOWS SR W/ HR 60s, BP LABILE. NO CURRENT GI COMPLAINTS, BTx4. YBARRA PATENT/ DRAINING DARK YELLOW URINE. SKIN OVERALL CDI. WILL CONTINUE TO MONITOR & UPDATE NEEDED.
--- NOTE | 2019-08-29 17:00 | NUR ---
COMFORT CARE: BOTH PROVIDERS, & DR ARMENDARIZ, HAVE BEEN MADE AWARE OF PT's WISHES TO GO HOME ON HOSPICE & HAVE COMFORT MEASURES FOR REMAINDER OF HOSPITALIZATION. THEY ARE AGREEABLE TO THIS & ORDERS HAVE BEEN PLACED BY COLTON Pringle PALLIATIVE CARE RN. PT IS CURRENTLY CALM & RESTING QUIETLY.
--- NOTE | 2019-08-29 17:59 | NUR ---
SHIFT SUMMARY: NO ACUTE CHANGES SINCE PRIOR UPDATES. PT IS RESTING COMFORTABLY IN RECLINER AT THIS TIME. WEARING CPAP W/ AUTO PRESSURE TITRATION & O2 SATS > 90%. YBARRA REMAINS PATENT/ DRAINING. PRECEDEX INFUSING TITRATED IN FLOWSHEET. WILL CONTINUE TO MONITOR & REPORT OFF TO ONCOMING RN.
--- NOTE | 2019-08-29 20:11 | NUR ---
met with patient to discuss hospice care and synptom. pt want hospice and care givers at home. pt on precidex discussed with family and they agree on plan of care
--- NOTE | 2019-08-30 04:41 | NUR ---
SHIFT SUMMARY PATIENT RAN OUT OF PRECEDEX DRIP ~ 22:30 LAST NIGHT, HAVE BEEN ABLE TO ADEQUATLY CONTROL ANXIETY/AIR HUNGER WITH AVAILABLE PRN MEDICATIONS, SEE EMAR. SWITCHED OVER TO MEDICAL FLOOR STATUS ORDERED. PATIENT MAY REQUIRE RE-EDUCATION TO PURPOSE OF COMFORT CARE/HOSPICE, ONCE MADE A COMMENT OF "I NEED TO GET BETTER TO TAKE CARE OF MY SON WHEN I GET HOME" AROUND 1 AM, INQUIRED ABOUT HER KNOWING ABOUT COMFORT CARE AND HOSPICE PLANS, SHE AKNOWLEDGED YES, HOWEVER MY CONCERN REMAINS. DID NOT FEEL MIDDLE OF THE NIGHT WITH NO FAMILY PRESENT WAS AN APPROPRIATE TIME TO DISCUSS THE MATTER FURTHER. CARDIAC/ VITAL SIGN MONITORING DISCONTINUED PER ORDER. WILL CONTINUE TO MONITOR AND ENSURE COMFORT.
--- NOTE | 2019-08-30 07:40 | NUR ---
ASSUMED CARE: REPORT RECEIVED FROM COLLINS Abdi RN. ASSUMED CARE OF THIS PT AT APPROX 0700. ON ASSESSMENT, SHE IS AWAKE & REQUESTING MEDICATIONS TO HELP HER SLEEP & BREATH EASIER, MEDS PER EMAR. SHE CONTINUES SITTING UP IN CHAIR & STS COMFORT IN THIS POSITION. REQUESTS CLIPBOARD, PAPER & PEN TO "MAKE A WILL." WILL CONTINUE TO MONITOR & UPDATE NEEDED.
--- NOTE | 2019-08-30 07:50 | NUR ---
DR ARMENDARIZ: PROVIDER AT BEDSIDE TO EVAL PT, SHE IS ANXIOUS AT THIS TIME & REASSURANCE PROVIDED TO HER. NO CHANGES AT THIS TIME.
--- NOTE | 2019-08-30 15:59 | NUR ---
HOSPICE UPDATE: HEALTH INFORMATICS INSTRUCTOR AT BEDSIDE & NOTIFIES THIS RN THAT PLAN IF FOR PT TO D/C HOME W/ HOSPICE CARE TOMORROW (08/31/19) AT APPROX 1000. THIS RN INFORMS HER THAT THE PT MAY TX TO MED FLOOR BEFORE THEN SHE IS NOW COMFORT CARE STATUS.
--- NOTE | 2019-08-30 16:43 | NUR ---
TX ASSIGNMENT / UPDATE: REPORT HAS BEEN GIVEN TO CARLOS Abdi RN TO ASSUME CARE ON MED FLOOR. THE ROOM IS STILL DIRTY & CARLOS WILL CALL THIS RN WHEN ABLE TO TAKE PT UPSTAIRS TO RM 362. CALL TO JARRET VIDES, PT's SHERIE, WHO PLANS TO LIVE W/ HER DURING HOSPICE PERIOD. NOTIFIED HER THAT PT WILL TX TO RM 362 SOON & THAT THE PLAN IS FOR HER TO D/C HOME W/ HOSPICE TOMORROW AT 1000. WILL CONTINUE TO MONITOR UNTIL TX COMPLETE.
--- NOTE | 2019-08-30 18:25 | NUR ---
PT TRANSFERED PT TRANSFERED TO [facility]. PT MEDICATED WITH MORPHINE. SITTING UP ON SIDE OF BED. ORIENTED TO ROOM. CALL LIGHT IN REACH. WILL CONTINUE TO MONITOR UNTIL TURNOVER IS COMPLETE.
--- NOTE | 2019-08-30 22:51 | NUR ---
RESTING QUIETLY AT THIS TIME
--- NOTE | 2019-08-31 07:27 | NUR ---
PT HAS BEEN RESTING IN BEDSIDE CHAIR THROUGH NOCT SHE SAID IT WAS EASIER TO BREATHE WITH HER HEAD UP THAT WAY. O2 PER NC AND C PAP NEEDED. HAS ALSO COMPLAINED ABOUT PAIN AND DISCOMFORT AND HAS RECEIVED MORPHINE SEVERAL TIMES THIS SHIFT -SEE MAR FOR DETAILS. CALL LIGHT IN REACH.
[2019-08-31] MEDS ORDERED: Ativan1 MG PO (10:15)
[2019-08-31] MEDS ORDERED: MORP20L SL (10:16)
--- NOTE | 2019-08-31 10:26 | NUR ---
Discharge Summary A/Ox1, pt discharged home with home health. Transported by [facility] via w/c. Med rec completed and a copy provided to patient along with 2 hard scripts. Pt on 5L NC, transferred to w/c with 1 mod assist. Personal belongings sent home with Serge (friend). No new meds so no meds faxed. Fajardo catheter remains in place and draining.
== END 2019-08-31 10:26 | disposition hospice, home (50) | DRG 189 ==
LOC: ER 03:19 → ICUW 05:45 → MEDS 08-30 18:11 → ENPENDDIS 08-31 09:08 → MEDS 08-31 10:26
PROVIDERS: Emergency Medicine; Internal Medicine Critical Care Medicine; ADMIT Internal Medicine
DX: J96.21 Acute and chronic respiratory failure with hypoxia (principal); J44.1 Chronic obstructive pulmonary disease with (acute) exacerbation; I27.20 Pulmonary hypertension, unspecified; F31.77 Bipolar disorder, in partial remission, most recent episode mixed; F17.210 Nicotine dependence, cigarettes, uncomplicated; I10 Essential (primary) hypertension; Z66 Do not resuscitate; F41.0 Panic disorder [episodic paroxysmal anxiety]; Z51.5 Encounter for palliative care; G47.33 Obstructive sleep apnea (adult) (pediatric); F15.10 Other stimulant abuse, uncomplicated; E66.9 Obesity, unspecified; B97.29 Other coronavirus as the cause of diseases classified elsewhere
CPT/HCPCS: 0099U; 36415; 36600; 51702; 71045; 80048; 80053; 82803; 83880; 84484; 85025; 85027; 93005; 93010; 94640; 94644; 94660; 94762; 96374; 96375; 99285-25; J1630; J1650; J1940; J2060; J2930; J3475